=== PATIENT | female | born 1975 | race Two or more races ===

== ENCOUNTER 2023-11-07 20:47 | Emergency (ER) | payer BC, MEDICAID ==
[~2023-11-07] VITALS: Ht 157.5 cm; Wt 62.4 kg
[2023-11-07 21:39] LABS: Urine Bacteria None Seen /hpf (None Seen)
[2023-11-07 21:49] LABS: Urine Blood 3+ /uL (Negative); Urine Clarity Clear (Clear); Urine Color Light-Yellow (Yellow); Urine Protein, UAD TRACE (Negative); Urine Specific Gravity 1.026 (1.001-1.035); Urine Urobilinogen 2 mg/dL (Negative); Urine WBC 3 /hpf (0 - 5); Urine pH 6.5 (5.0-9.0)
[2023-11-07 22:12] LABS: COVID19 ANTIGEN SOFIA FIA POSITIVE (NEGATIVE); Rapid Influenza A Negative (Negative); Rapid Influenza B Negative (Negative)
[2023-11-07 23:41] VITALS: BP 138/68; PULSE 81; RESP 16; TEMP 98.7; O2SAT 97
[2023-11-08] MEDS ORDERED: ACET500T58 PO (01:30)
[2023-11-08] MEDS ORDERED: PRED20TA2 PO (01:30)
[2023-11-08] MEDS ORDERED: NIRM1TAB7 PO (01:30)
== END 2023-11-08 01:42 | disposition home or self-care (01) ==
LOC: ER 20:47
DX: U07.1 COVID-19 (principal)
CPT/HCPCS: 36415; 81001; 87426; 87804